=== PATIENT | female | born 1945 | race Caucasian/White ===

== ENCOUNTER → 2019-01-05 10:31 | Outpatient (CLI) | payer MEDICARE, BC, SELFPAY | PROVIDERS: PCP Family Medicine; Referring Provider Family Medicine; Visit Provider Family Medicine | DX: I87.313 Chronic venous hypertension (idiopathic) with ulcer of bilateral lower extremity (principal); L97.822 Non-pressure chronic ulcer of other part of left lower leg with fat layer exposed; L97.812 Non-pressure chronic ulcer of other part of right lower leg with fat layer exposed; L03.115 Cellulitis of right lower limb; L08.9 Local infection of the skin and subcutaneous tissue, unspecified | CPT/HCPCS: 11042; 36415; 80053; 82728; 83540; 83550; 84134; 85025; 85045; 85651; 86140; 87070; 87075; 87205; 99203; 99213 ==

== ENCOUNTER → 2019-01-05 12:21 | Outpatient (CLI) | payer MEDICARE, SELFPAY ==
[2019-01-05 13:47] LABS: Add Manual Diff / Slide Review NO; Basophils Absolute Auto 100 /uL (0-100); Basophils Percent Auto 1.1 % (0-2); Eosinophils Absolute Auto 100 /uL (0-450); Eosinophils Percent Auto 1.8 % (2-4); Hematocrit 37.7 % (36-46); Hemoglobin 12.2 g/dL (12.0-16.0); Lymphocytes Absolute Auto 1300 /uL (1100-4500); Lymphocytes Percent Auto 20.1 % (25-40); Mean Corpuscular HGB Conc 32.4 % (30-36); Mean Corpuscular Hemoglobin 27.9 PG (26-34); Monocytes Absolute Auto 500 /uL (0-900); Monocytes Percent Auto 7.3 % (3-14); Neutrophils Absolute Auto 4600 /uL (1500-7000); Neutrophils Percent Auto 69.7 % (50-75); Platelet Count 430 X10^3/uL (150-400); Red Blood Cell Count 4.39 X10^6/uL (4.0-5.2); Red Cell Distribution Width 14.3 % (11.6-14.8); White Blood Cell Count 6.6 X10^3/uL (4.5-11.0)
[2019-01-05 14:14] LABS: Erythrocyte Sedimentation Rate 53 MM/HR (0-20)
[2019-01-05 15:32] LABS: Iron 81 ug/dL (37-170)
[2019-01-05 15:36] LABS: Alanine Aminotransferase 21 IU/L (9-52); Albumin 4.2 g/dL (3.5-5.0); Albumin Globulin Ratio 1.4 (1.0-2.8); Alkaline Phosphatase 87 U/L (38-126); Aspartate Aminotransferase 23 IU/L (14-36); Bilirubin Total 0.3 mg/dL (0.2-1.3); Blood Urea Nitrogen 19 mg/dL (7-17); Calcium 9.7 mg/dL (8.4-10.2); Carbon Dioxide 28 mmol/L (22-32); Chloride 100 mmol/L (98-107); Estimated Glomerular Filt Rate 54.7 mL/min (>60); Glucose 79 mg/dL (80-110); HEMOLYSIS < 15 (0-50); Potassium 4.6 mmol/L (3.4-5.1); Sodium 137 mmol/L (137-145); Total Protein 7.2 g/dL (6.3-8.2)
[2019-01-05 15:45] LABS: Prealbumin 30.3 mg/dL (17.6-36.0); Total Iron Binding Capacity 329 ug/dL (265-497)
== END ==
PROVIDERS: PCP Family Medicine; Visit Provider Family Medicine
DX: D64.9 Anemia, unspecified (principal); I87.313 Chronic venous hypertension (idiopathic) with ulcer of bilateral lower extremity; L97.222 Non-pressure chronic ulcer of left calf with fat layer exposed; L97.212 Non-pressure chronic ulcer of right calf with fat layer exposed; L03.115 Cellulitis of right lower limb
CPT/HCPCS: 36415; 80053; 82728; 83540; 83550; 84134; 85025; 85045; 85651; 86140

== ENCOUNTER → 2019-01-12 09:40 | Outpatient (CLI) | payer MEDICARE, BC, SELFPAY | PROVIDERS: PCP Family Medicine; Visit Provider Family Medicine | DX: I87.313 Chronic venous hypertension (idiopathic) with ulcer of bilateral lower extremity (principal); L97.212 Non-pressure chronic ulcer of right calf with fat layer exposed; L97.222 Non-pressure chronic ulcer of left calf with fat layer exposed; L03.115 Cellulitis of right lower limb | CPT/HCPCS: 97597 ==

== ENCOUNTER → 2019-01-19 09:29 | Outpatient (CLI) | payer MEDICARE, BC, SELFPAY | PROVIDERS: PCP Family Medicine; Visit Provider Family Medicine | DX: I87.313 Chronic venous hypertension (idiopathic) with ulcer of bilateral lower extremity (principal); L97.812 Non-pressure chronic ulcer of other part of right lower leg with fat layer exposed; L97.822 Non-pressure chronic ulcer of other part of left lower leg with fat layer exposed | CPT/HCPCS: 97597 ==

== ENCOUNTER → 2019-01-26 09:41 | Outpatient (CLI) | payer MEDICARE, BC, SELFPAY | PROVIDERS: PCP Family Medicine; Visit Provider Family Medicine | DX: I87.313 Chronic venous hypertension (idiopathic) with ulcer of bilateral lower extremity (principal); L97.212 Non-pressure chronic ulcer of right calf with fat layer exposed; L97.222 Non-pressure chronic ulcer of left calf with fat layer exposed | CPT/HCPCS: 17250; 93922 ==

== ENCOUNTER → 2019-02-02 09:53 | Outpatient (CLI) | payer MEDICARE, BC, SELFPAY | PROVIDERS: PCP Family Medicine; Visit Provider Family Medicine | DX: I87.312 Chronic venous hypertension (idiopathic) with ulcer of left lower extremity (principal); L97.822 Non-pressure chronic ulcer of other part of left lower leg with fat layer exposed; L03.115 Cellulitis of right lower limb; A49.01 Methicillin susceptible Staphylococcus aureus infection, unspecified site | CPT/HCPCS: 17250 ==

== ENCOUNTER → 2019-02-09 09:29 | Outpatient (CLI) | payer MEDICARE, BC, SELFPAY | PROVIDERS: PCP Family Medicine; Visit Provider Family Medicine | DX: I87.312 Chronic venous hypertension (idiopathic) with ulcer of left lower extremity (principal); L97.822 Non-pressure chronic ulcer of other part of left lower leg with fat layer exposed | CPT/HCPCS: 17250 ==

== ENCOUNTER → 2019-02-16 09:43 | Outpatient (CLI) | payer MEDICARE, BC, SELFPAY | PROVIDERS: PCP Family Medicine; Visit Provider Family Medicine | DX: I87.312 Chronic venous hypertension (idiopathic) with ulcer of left lower extremity (principal); L97.822 Non-pressure chronic ulcer of other part of left lower leg with fat layer exposed | CPT/HCPCS: 11042 ==

== ENCOUNTER → 2019-02-23 11:57 | Outpatient (CLI) | payer MEDICARE, BC, SELFPAY | PROVIDERS: PCP Family Medicine; Visit Provider Family Medicine | DX: I87.2 Venous insufficiency (chronic) (peripheral) (principal); L97.821 Non-pressure chronic ulcer of other part of left lower leg limited to breakdown of skin | CPT/HCPCS: 99213 ==

== ENCOUNTER → 2019-03-02 10:15 | Outpatient (CLI) | payer MEDICARE, BC, SELFPAY | PROVIDERS: PCP Family Medicine; Visit Provider Family Medicine | DX: I73.9 Peripheral vascular disease, unspecified (principal) | CPT/HCPCS: 99212; 99214 ==

== ENCOUNTER → 2019-04-08 13:39 | Outpatient (CLI) | payer MEDICARE, BC, SELFPAY | PROVIDERS: PCP Family Medicine; Visit Provider Family Medicine | DX: I87.312 Chronic venous hypertension (idiopathic) with ulcer of left lower extremity (principal); L97.821 Non-pressure chronic ulcer of other part of left lower leg limited to breakdown of skin | CPT/HCPCS: 29581; 99213 ==

== ENCOUNTER → 2019-04-13 11:40 | Outpatient (CLI) | payer MEDICARE, BC, SELFPAY | PROVIDERS: PCP Family Medicine; Visit Provider Podiatrist Primary Podiatric Medicine | DX: I87.2 Venous insufficiency (chronic) (peripheral) (principal); L97.821 Non-pressure chronic ulcer of other part of left lower leg limited to breakdown of skin | CPT/HCPCS: 29581 ==

== ENCOUNTER → 2019-04-21 12:55 | Outpatient (CLI) | payer MEDICARE, BC, SELFPAY | PROVIDERS: PCP Family Medicine; Visit Provider Family Medicine | DX: I87.312 Chronic venous hypertension (idiopathic) with ulcer of left lower extremity (principal); L97.822 Non-pressure chronic ulcer of other part of left lower leg with fat layer exposed | CPT/HCPCS: 99212; 99213 ==

== ENCOUNTER → 2019-04-28 13:14 | Outpatient (CLI) | payer MEDICARE, BC, SELFPAY | PROVIDERS: PCP Family Medicine; Visit Provider Family Medicine | DX: I87.312 Chronic venous hypertension (idiopathic) with ulcer of left lower extremity (principal); L97.822 Non-pressure chronic ulcer of other part of left lower leg with fat layer exposed | CPT/HCPCS: 99212; 99213 ==

== ENCOUNTER → 2019-05-05 11:19 | Outpatient (CLI) | payer MEDICARE, BC, SELFPAY | PROVIDERS: PCP Family Medicine; Visit Provider Family Medicine | DX: I87.312 Chronic venous hypertension (idiopathic) with ulcer of left lower extremity (principal); L97.821 Non-pressure chronic ulcer of other part of left lower leg limited to breakdown of skin; R60.0 Localized edema | CPT/HCPCS: 99213 ==

== ENCOUNTER → 2019-05-12 10:04 | Outpatient (CLI) | payer MEDICARE, BC, SELFPAY | PROVIDERS: PCP Family Medicine; Visit Provider Family Medicine | DX: I87.312 Chronic venous hypertension (idiopathic) with ulcer of left lower extremity (principal); L97.821 Non-pressure chronic ulcer of other part of left lower leg limited to breakdown of skin | CPT/HCPCS: 97597 ==

== ENCOUNTER → 2019-05-19 09:49 | Outpatient (CLI) | payer MEDICARE, BC, SELFPAY | PROVIDERS: PCP Family Medicine; Visit Provider Family Medicine | DX: I87.2 Venous insufficiency (chronic) (peripheral) (principal); L97.821 Non-pressure chronic ulcer of other part of left lower leg limited to breakdown of skin; R60.0 Localized edema | CPT/HCPCS: 99212; 99213 ==

== ENCOUNTER → 2019-05-26 09:44 | Outpatient (CLI) | payer MEDICARE, BC, SELFPAY | PROVIDERS: PCP Family Medicine; Visit Provider Family Medicine | DX: Z48.817 Encounter for surgical aftercare following surgery on the skin and subcutaneous tissue (principal) | CPT/HCPCS: 99212; 99213 ==

== ENCOUNTER 2021-03-02 14:14 | Outpatient (RCR) | payer MEDICARE, BC, SELFPAY ==
--- NOTE | 2021-03-05 16:11 | ST.OPIE ---
Visit Care Team Role Provider Type Florentino Herdeia MD Primary Care Provider Non-Staff Specialty: Internal Medicine Address: [address] [place] [address] [address], [place], [address] Email: Justin Richards MD Attending Provider Physician Referring Provider Specialty: Ear, Nose, Throat Address: [address] [place] [address] [place], [address] Email: [email or web address] Speech-Language Pathology Initial Evaluation TELEPHONE INFORMATION SUPERVISOR Clinical Instructor Line Start: 03/02/21 15:48 Freq: Status: Active Protocol: Document 03/05/21 14:48 LNK (Rec: 03/05/21 14:48 LNK [email or web address]) Clinical Instructor Signature Clinical Instructor Clinical Instructor Yes TELEPHONE INFORMATION SUPERVISOR Clinical Swallow Evaluation Start: 03/02/21 15:48 Freq: Status: Active Protocol: Document 03/02/21 15:49 HM (Rec: 03/02/21 16:44 HM [id number]) Clinical Swallow Evaluation Session Time Visit Start Time 14:30 Visit Stop Time 14:30 Total Visit Minutes 60 Visit Information Visit Number 1 Plan of Care Dates 03/02/21-06/02/21 Insurance Information Medicare Referral Referring Provider Justin Richards Reason for Referral Pharyngeal dysphagia and hoarseness Setting Assessment Location Outpatient Care Visit Type Note Type Initial evaluation Patient Information Identification Type Name,ID Card History Azul is a 75-year-old woman who was referred by ENT Dr. Justin Richards for a clinical swallow evaluation due to difficulty swallowing and hoarseness. She has a significant medical history of stage 4 colon cancer which has metastasized to liver and lungs. In late 2015, she had a drain tube placed in her left ear to relieve pressure, which led to continuos drainage of spinal fluid from her ear. In October 2016, she had bacterial meningitis 4 weeks post tube placement and received an emergency intubation with life support for 12 days after collapsing at home. About two weeks after being taken off life support, pt began to have throat spasms when swallowing. Additionally, in November 2016 , pt had shingles from the top right side of her head to her ear and eye. 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 Pt also had a sepsis infection ~2018. Subjective Observations Pt attended the appointment with her , Rafael. She was coherent and cooperative. Reported by Patient Other Symptoms Difficulty swallowing pills, Food gets stuck Comment Pt reported that food, liquid, and pills get locked in her throat on occasion when trying to swallow. This has been happening for ~4 years, seemingly since being intubated when she had bacterial meningitis. When taking pills, she reported that she stands straight and puts her head back, but her tongue gets in the way and the pills won't go back. She reports gagging with liquids coming out her nose and spitting pills back out to try again. She described the spasm as a tightening feeling that prevents anything from going down, however she can still breathe during these episodes. If she has two episodes in one day, she feels soreness in her throat area, similar to a muscle strain. Pt reports swallowing saliva is fine and at times she has excessive saliva. She reports no instances of coughing/ choking or pain during or following the cramping episodes. The episodes are reported to be occurring almost daily for the past two months. Current Diet Regular Baseline Feeding Method Independent in self-feeding Objective Assessment Mental Status Alert,Responsive,Cooperative Oral Integrity WFL Dentition Within normal limits Lip Function Within normal limits Observation of Lips at Rest Symmetrical Pucker Within normal limits Tongue Function Within normal limits Observations of Tongue at Rest Involuntary movement(s) Tongue Protrusion Within normal limits Tongue Retraction Within normal limits Tongue Lateralization Within normal limits Jaw Function Within normal limits Observations of Jaw at Rest Within normal limits Jaw Opening Within normal limits Jaw Closing Within normal limits Hard/Soft Palate Function Within normal limits Observations of Hard/Soft Palate Within normal limits Nasality Within normal limits Phonation Breathy Respiratory Sufficiency Within normal limits Comment Tongue fasciculations observed at rest on the right side. Mild diplophonia and breathiness during conversation. Food and Liquid Trials Position During Assessment Upright (90 degrees) Liquids Trialed Ice chips,Thin,Pudding Solids Trialed Regular Administration Type Tea spoon,Cup single sip,Cup consecutive sips,Straw,Self- feeding Oral Impairment Within functional limits Oral Phase Comments Tongue pumping prior to initiation of swallow across trials. Moderate amounts of oral residue across all oral structures following first swallow of pudding. Pt was able to clear residue adequately with a second swallow and described leaving residue as strategy to reduce the size of each swallow. Pharyngeal Impairment Within functional limits Pharyngeal Phase Comments During laryngeal palpation, minimal hyolaryngeal elevation and anterior movement. During consecutive swallows, the final swallow was audible. Fatigue/Endurance Endurance WNL Findings Swallowing Function Dysphagia unspecified Contributing Factors to Swallow Impaired oral-pharyngeal Impairment transport,Delayed swallow initiation,Reduced laryngeal excursion,Excessive oral residue Comment During this evaluation, it was evident that Azul has reduced hyolaryngeal excursion and incoordination of oral structures to propel the bolus posteriorly. These factors may lead to delayed initiation of the swallow, which could cause the feeling of not being able to get the bolus down. No spasms or periods of tightness occurred during this appointment. However, Azul did report a feeling of being close to having an episode after audible consecutive swallows. No overt signs/ symptoms of aspiration were observed, indicating that airway protection is adequate at this time. Recommendations Instrumental Assessment Yes Other Recommendations Due to possible incoordination of oral structures, and her complex medical history, a Modified Barium Swallow Study is recommended in order to determine the nature of the dysphagia and guide treatment. Safety Precautions/Swallowing Small bites and sips when Recommendations eating,Slow rate; swallow between bites Medication Recommendations Whole in Carrier Education Patient/Caregiver Education Described results of evaluation,Patient expressed understanding of evaluation, Patient expressed agreement with goals & treatment plans Goals Short-term Goals Pt will complete a Modified Barium Swallow Study to inform treatment and rule out structural anomalies.
--- NOTE | 2021-05-17 17:07 | ST.OPTN ---
Visit Care Team Role Provider Type Florentino Heredia MD Primary Care Provider Non-Staff Address: [facility] [address], [place], [address] Justin Richards MD Attending Provider Physician Referring Provider Address: [address] [place] [address] [address], [place], [address] FLORAL SPECIALIST Treatment Note FLORAL SPECIALIST Clinical Instructor Line Start: 03/02/21 15:48 Freq: Status: Active Protocol: Document 03/05/21 14:48 LNK (Rec: 03/05/21 14:48 LNK [email or web address]) Clinical Instructor Signature Clinical Instructor Clinical Instructor Yes FLORAL SPECIALIST Treatment Note Start: 05/17/21 17:01 Freq: Status: Active Protocol: Document 05/17/21 17:01 LNK (Rec: 05/17/21 17:07 LNK [id number]) Speech Pathology Treatment Note Visit Type Note Type Discharge Summary General Information General Information Azul is a 75-year-old woman who reported that food, liquid, and pills get locked in her throat on occasion when trying to swallow. This has been happening for ~4 years, seemingly since being intubated when she had bacterial mengingitis. When taking pills, she reported that she stands straight and puts her head back, but her tongue gets in the way and the pills won't go back. She reports gagging with liquids coming out her nose and spitting pills back out to try again. She described the spasm as a tightening feeling that prevents anything from going down, however she can still breathe during these episodes. If she has two episodes in one day, she feels soreness in her throat area, similar to a muscle strain. Pt reports swallowing saliva is fine and at times she has excessive saliva. She reports no instances of coughing/ choking or pain during or following the cramping episodes. The episodes are reported to be occurring almost daily for the past two months. A Modified Barium Swallow Study is recommended in order to determine the nature of the dysphagia and guide treatment. Assessment Progress Towards Goals Appropriate for Discharge Assessment of Improvement Pt did not return for MBSS or tx sessions. Has not returned. Will d/c at this time Plan Frequency of Treatment No Further Therapy Therapy Recommendations Discharge from Speech Therapy
--- NOTE | 2021-05-17 17:12 | ST.OPDS ---
Visit Care Team Role Provider Type Florentino Heredia MD Primary Care Provider Non-Staff Address: [facility] [address], [place], [address] Justin Richards MD Attending Provider Physician Referring Provider Address: [address] [place] [address] [place], [address] SAMPLE BUILDER Treatment Note SAMPLE BUILDER Clinical Instructor Line Start: 03/02/21 15:48 Freq: Status: Active Protocol: Document 03/05/21 14:48 LNK (Rec: 03/05/21 14:48 LNK [email or web address]) Clinical Instructor Signature Clinical Instructor Clinical Instructor Yes SAMPLE BUILDER Treatment Note Start: 05/17/21 17:01 Freq: Status: Active Protocol: Document 05/17/21 17:09 LNK (Rec: 05/17/21 17:11 LNK [email or web address]) Speech Pathology Treatment Note Visit Type Note Type Discharge Summary General Information General Information Pt presents with mild-moderate voice deficits, characterized by breathiness, roughness, diplophonia, pitch breaks, and occasional tremor. The vocal quality described is suspected to be secondary to vocal fold irritation due to GERD, as well as age-related vocal fold bowing. In addition , the pt demonstrates vocally abusive behavior by yelling throughout the day. The combination of frequent yelling, vocal fold bowing, and irritation from GERD would lead to inadequate adduction (closure) of the vocal folds and poor vocal quality. Inadequate laryngeal muscular strength requires increased effort when talking to adduct the vocal folds for voice production. Additionally, pt exhibits significant anxiety and overall tension which contributes to laryngeal muscular fatigue and poor vocal quality as a result. During the evaluation, it was evident that Azul has reduced hyolaryngeal excursion and incoordination of oral structures to propel the bolus posteriorly. These factors may lead to delayed initiation of the swallow, which could cause the feeling of not being able to get the bolus down. [ Assessment Assessment of Improvement Pt has not been seen at this clinic since initial evaluation. Will discharge at this time.
== END 2021-05-21 09:19 | disposition home or self-care (01) ==
LOC: SP 14:14
PROVIDERS: PCP Internal Medicine; Referring Provider Otolaryngology; Visit Provider Otolaryngology
DX: R13.13 Dysphagia, pharyngeal phase (principal); R49.0 Dysphonia
CPT/HCPCS: 92610